=== PATIENT | female | born 2000 | race Caucasian/White ===

== ENCOUNTER 2025-01-19 23:17 | Day surgery (SDC) | payer SELFPAY ==
[2025-01-19 23:38] VITALS: BMI 25.7
[2025-01-20] MEDS ORDERED: hydrALAZINE 20 MG/ML VIAL SLOW IVP PRN (00:10)
[2025-01-20 00:13] LABS: Fetal Membranes Rupture No Membranes Rupture (No Rupture)
== END 2025-01-20 00:22 | disposition home or self-care (01) ==
LOC: CSHLD/OP 23:17
PROVIDERS: ATTEND Obstetrics & Gynecology
DX: Z03.71 Encounter for suspected problem with amniotic cavity and membrane ruled out (principal); O47.1 False labor at or after 37 completed weeks of gestation; Z3A.39 39 weeks gestation of pregnancy; O24.419 Gestational diabetes mellitus in pregnancy, unspecified control; Z79.899 Other long term (current) drug therapy
CPT/HCPCS: 84112; 99284

== ENCOUNTER 2025-01-21 18:00 | Inpatient (IN) | payer OTHER, SELFPAY ==
[2025-01-21 21:13] VITALS: BMI 25.7
[2025-01-21] MEDS ORDERED: HYDROcodone/Acetaminophen 5/325 mg Tablet PO PRN ×2 (21:13)
[2025-01-21] MEDS ORDERED: Ibuprofen 800 MG TAB PO PRN (21:13)
[2025-01-21] MEDS ORDERED: Oxytocin 30 units/NS 500 ML 500 ML IV SCH ×2 (21:13)
[2025-01-21] MEDS ORDERED: Lidocaine 1% (PF) 30 ML VIAL SC PRN (21:13)
[2025-01-21] MEDS ORDERED: Ondansetron PF 4 MG/2 ML Vial IVP PRN (21:13)
[2025-01-21] MEDS ORDERED: hydrALAZINE 20 MG/ML VIAL SLOW IVP PRN (21:13)
[2025-01-21 22:24] LABS: Hematocrit 33.4 % (34.9-44.5); Hemoglobin 10.9 g/dL (12.0-15.5); Mean Corpuscular Hemoglobin 29.1 pg (27.0-33.0); Mean Corpuscular Volume 89.1 fL (81.6-98.3); Platelet Count 158 10x3/uL (150-450); Red Blood Cell (RBC) Count 3.75 10x6/uL (3.90-5.03); White Blood Cell (WBC) Count 9.14 10x3/uL (3.5-10.5)
[2025-01-21 23:09] LABS: Syphilis Antibody Index 0.07 S/CO (<1.00 Non-Reactive)
[2025-01-21 23:14] LABS: Hep B Surf Ag - L&D Non-Reactive S/CO (NonReactive)
[2025-01-22] MEDS: fentaNYL/Ropivacaine Epidural 100 ML ONE (04:57)
[2025-01-22] MEDS ORDERED: Acetaminophen 325 MG TAB PO PRN (05:02)
[2025-01-22] MEDS ORDERED: diphenhydrAMINE 50 MG/ML VIAL IVP PRN (05:02)
[2025-01-22] MEDS ORDERED: Ondansetron PF 4 MG/2 ML Vial IVP PRN ×2 (05:02→12:03)
[2025-01-22] MEDS ORDERED: Communication Order-Pharmacy FS SCH (05:15)
[2025-01-22] MEDS ORDERED: fentaNYL 2 mcg/Ropivacaine 0.2% Epidural 100 ML CADD EPIDURAL SCH (05:15)
[2025-01-22] MEDS ORDERED: Bupivacaine HCl 0.5%/Epinephrine 1:200,000/PF 30 ml Vial ONE (12:00)
[2025-01-22] MEDS ORDERED: Bupivacaine 0.25% HCL 30 ML VIAL ONE (12:00)
[2025-01-22] MEDS ORDERED: Oxytocin 30 units/NS 500 ML 500 ML IV SCH (12:03)
[2025-01-22] MEDS ORDERED: Benzocaine-Menthol 82.5 ML CAN TOP PRN (12:03)
[2025-01-22] MEDS ORDERED: diphenhydrAMINE 25 MG CAP PO PRN (12:03)
[2025-01-22] MEDS ORDERED: Bisacodyl 10 MG SUPP PR PRN (12:03)
[2025-01-22] MEDS ORDERED: hydrALAZINE 20 MG/ML VIAL SLOW IVP PRN (12:03)
[2025-01-22] MEDS ORDERED: Milk Of Magnesia 30 ML UDCUP PO PRN (12:03)
[2025-01-22] MEDS ORDERED: Preparation H Ointment 28 GM TUBE PR PRN (12:03)
[2025-01-22] MEDS ORDERED: HYDROcodone/Acetaminophen 5/325 mg Tablet PO PRN ×2 (12:03)
[2025-01-22] MEDS ORDERED: Lanolin Ointment 7 GM TUBE TOP PRN (12:03)
[2025-01-22] MEDS: Ferrous Sulfate 325 MG TAB PO SCH (12:52)
[2025-01-22] MEDS: Ibuprofen 800 MG TAB PO SCH (13:39)
[2025-01-23 08:45] VITALS: BP 115/66; TEMP 97
== END 2025-01-23 17:25 | disposition home or self-care (01) | DRG 807 ==
LOC: EDUNIT# 18:00 → CSHLD 20:50 → CSHPP 01-22 12:26
PROVIDERS: ADMIT Obstetrics & Gynecology; ATTEND Obstetrics & Gynecology
PROC: 10E0XZZ Delivery of Products of Conception, External Approach (ICD-10-PCS; principal; 2025-01-22)
PROC: 0HQ9XZZ Repair Perineum Skin, External Approach (ICD-10-PCS; 2025-01-22)
PROC: 0UQMXZZ Repair Vulva, External Approach (ICD-10-PCS; 2025-01-22)
PROC: 3E0P7VZ Introduction of Hormone into Female Reproductive, Via Natural or Artificial Opening (ICD-10-PCS; 2025-01-22)
DX: O24.420 Gestational diabetes mellitus in childbirth, diet controlled (principal); Z37.0 Single live birth; Z3A.39 39 weeks gestation of pregnancy; O70.0 First degree perineal laceration during delivery; O71.82 Other specified trauma to perineum and vulva
CPT/HCPCS: 36415; 51702; 85027; 86780; 86850; 86900; 86901; 87340; 99285; J0665